=== PATIENT | male | born 1945 | race Caucasian/White ===

== ENCOUNTER 2018-10-22 07:43 | Observation (INO) ==
[2018-10-22 07:46] VITALS: BMI 27.9
[2018-10-22] MEDS ORDERED: CATAPRES TAB 0.2 MG PO ONE (08:03)
[2018-10-22] MEDS ORDERED: CATAPRES TAB 0.2 MG ONE (08:05)
[2018-10-22 08:15] LABS: BASOPHILS % (AUTO) 1.1 % (0.2-1.0); EOSINOPHILS # (AUTO) 0.2 x10^3/uL (0.0-0.2); EOSINOPHILS % (AUTO) 6.3 % (0.9-2.9); HEMATOCRIT 42.3 % (42.0-54.0); LYMPHOCYTES # (AUTO) 1.3 X10^3/uL (1.3-2.9); LYMPHOCYTES % (AUTO) 34.1 % (21.0-51.0); MEAN CORPUSCULAR HEMOGLOBIN 34.6 pg (27.0-34.0); MEAN CORPUSCULAR HGB CONC 35.4 g/dL (33.0-35.0); MEAN CORPUSCULAR VOLUME 97.5 fL (80.0-100.0); MEAN PLATELET VOLUME 6.5 fL (7.4-11.0); MONOCYTES # (AUTO) 0.5 x10^3/uL (0.3-0.8); MONOCYTES % (AUTO) 12.1 % (0.0-13.0); NEUTROPHILS # (AUTO) 1.8 x10^3/uL (2.2-4.8); NEUTROPHILS % (AUTO) 46.4 % (42.0-75.0); PLATELET COUNT 149 X10^3/uL (150.0-450.0); RED BLOOD COUNT 4.34 X10^6/uL (4.7-6.0); RED CELL DISTRIBUTION WIDTH 13.5 % (11.6-16.5); WHITE BLOOD COUNT 3.9 X10^3/uL (3.6-10.0)
--- NOTE | 2018-10-22 08:15 | DR.WEAKNES ---
HPI Time Seen Time Seen by Provider: 10/22/18 08:01 Primary Care Physician Primary Care Physician: KASSIE Complaints Chief Complaint Doctors Comments: Pt presented with right body weakness and numbness. Pt reports being well last night and today woke up around d6:30am with right sided numbness/tingling and DAVILA. He reports having right vision changes but denies any loss. He denies any CP, SOB, n/v. He has not has similar symptoms in the past. Denies any pain or difficulty walking and is not currently on any medications. His BP is elevated. Chief Complaint:: PT. STATES AT 0630, THE RIGHT SIDE OF HIS BODY FELT WEAK AND N UMB. HE ALSO STATES HE HAD BLURRED VISION TO THE RIGHT EYE. SYMPTOMS ARE THE SAME UPON ARRIVAL TO THE ER. DENIES PAIN. Reviewed Nurses Notes Reviewed: Yes Source History Provided: Patient and Family Member Mode of Arrival Mode of Arrival: Wheelchair Timing Onset of Chief Complaint: 10/22/18 Since onset, symptoms are:: Unchanged Symptom Onset: Unknown (wake up) Duration Duration: Since Onset Duration: Hours (2) Context Onset: Spontaneous Symptoms: Weakness and Numbness; denies Paralysis, Slurred Speech, Visual loss, Difficulty talking and Difficulty walking History of: None; denies CVA, Atrial Fibrillation, Head Trauma and Aspirin use Stroke Symptoms: Numbness of limbs (right); denies Ataxia, Weakness of limb, Slurring and Dizziness Location Weakness Location: Normal Associated Signs and Symptoms Associated Signs and Symptoms: denies Altered Mental Status, Neck Pain, Chest Pain, Nausea and Vomiting PMH PMH Past Medical History: No Past Surgical History: Yes Surgical History: Cholecystectomy Past Surgical History Comment: CATARACTS Family History History of Family Medical Conditions: No Social History Does patient currently use any type of tobacco product: No Have you used tobacco products in the last 12 months: No Type of Tobacco Use: None Does any household member use tobacco: No Alcohol Use: Occasionally Do you use any recreational Drugs:: No Lives With: Spouse Lives Where: Home infectious screening In the last 2 months have you had wt loss of >10#?: NO Have you had fever, night sweats or hemotysis?: No Have you traveled outside the country in the last 6 months?: No Isolation: Standard ROS Review of Systems Constitutional: negative Chills, Fever and Weakness Eyes: Blurred Vision; negative Eye Pain and Diplopia ENTM: negative Nose Congestion Respiratoy: negative Short of Breath Cardiovascular: negative Chest Pain and Palpitations Gastrointestinal/Abdominal: negative Abdominal Pain, Constipation, Nausea and Vomiting Genitourinary: negative Dysuria and Hematuria Neurological: Numbness and Paresthesia; negative Headache, Seizure, Weakness, Dizziness, Problems Walking and Speech Problem Musculoskeletal: negative Joint Pain and Muscle Pain Integumentary: negative Rash Endocrine: negative Unexplained Weight Gain, Unexplained Weight Loss and Decreased Appetite Psychiatric: negative Hallucinations All Other Systems: Reviewed and Negative PE Vital Signs Vitals: Temperature 98.2 F Pulse Rate [Apical] 61 Pulse Rate 62 Respiratory Rate 7 Blood Pressure [Left Arm] 167/90 Blood Pressure 167/90 O2 Sat by Pulse Oximetry 94 General Limitations: No Limitations Head Head Exam: Normal Inspection, Atraumatic and Normocephalic Eyes Eye exam: Normal Appearance, PERRL and EOMI; negative Scleral Icterus, Conjunctival Injection and Nystagmus Eyelids: Normal Inspection: Bilateral Pupils: Regular, Round: Bilateral ENT ENT Exam: Normal Exam, Normal Oropharynx, Normal External Ear Exam and Mucous Membranes Moist Mouth Exam: Normal Inspection Neck Neck Exam: Normal Inspection and Full ROM; negative Tenderness, Meningismus and Lymphadenopathy Respiratory Respiratory Exam: Normal Lung Sounds Bilat Respiratory Exam: Bilateral: Clear to Auscultation Cardiovascular Cardiovascular Exam: Regular Rate, Normal Rhythm and Normal Heart Sounds; negative Systolic Murmur Abdominal Exam Abdominal Exam: Normal Inspection, Normal Bowel Sounds and Soft; negative Distention, Tenderness and Guarding Extremities Extremities Exam: Normal Inspection, Full ROM and Normal Capillary Refill; negative Tenderness, Edema and Joint Swelling Back Back Exam: Normal Inspection and Full ROM; negative Tenderness, Paraspinal Tenderness and Vertebral Tenderness Neurologic Neurological Exam: Alert, Oriented X3, CN II-XII Intact, Normal Gait, Motor Sensory Deficit (right sensation decreased compared to left), Reflexes Normal and Other (visual acutity nml) Patient Oriented To: Person, Place and Time Speech: Fluid Speech Cranial Nerve Exam: EOM Function (II, III, IV, ): Normal, Facial Sensation (V): Normal, Facial Palsy (VII): Normal, Gag reflex (XI): Normal, Spinal Accessory Function (XI): Normal and Tongue Deviation: Normal Cerebellar Function: Finger to Nose: Normal and Heel to [place]: Normal Cerebellar Function: Normal Gait Motor Strength - LUE: 5/5 Motor Strength - RUE: 5/5 Motor Strength - LLE: 5/5 Motor Strength - RLE: 5/5 Upper Motor Neuron Exam: Babinski Sign: Normal Sensory Exam Lower Extremity: Light Touch: Right Abnormal Psychiatric Psychiatric Exam: Normal Affect and Normal Mood Skin Skin Exam: Warm, Dry, Intact and Normal Color; negative Rash MDM Differential Diagnosis Differential Diagnosis: CVA, Electrolyte Disorder and TIA Differential Diagnosis Comment: hyertensive emergency COURSE Reevaluation 1st: Improved (Right side numbness and tingling resolving, but still has DAVILA and BP >216/109 HR 65 will give labetalol 20mg. discussed results will pt.) 2nd: Improved (Pt BP down to 180/94. Still having Left sided DAVILA and neck pain. Pt with Full ROM of neck. no meningeal signs. D/w pt result and will admit for further evaluations.) Consultation Consultation Comments: 10:[address] Hand for admission will accept and see in the hospital. Advised to start on Lisinopril 10mg daily and order MRI/MRA. Education/Counseling Education/Counseling: Patient, Family, Education and Counseling Educated On: Treatment, Diagnosis and Prognosis ROR Labs Reviewed Laboratory Results Reviewed?: Yes Result Diagrams: 10/22/18 07:55 10/22/18 07:55 Laboratory: WBC 3.9 X10^3/uL (3.6-10.0) 10/22/18 07:55 RBC 4.34 X10^6/uL (4.7-6.0) L 10/22/18 07:55 Hgb 15.0 g/dL (13.5-18.0) 10/22/18 07:55 Hct 42.3 % (42.0-54.0) 10/22/18 07:55 MCV 97.5 fL (80.0-100.0) 10/22/18 07:55 MCH 34.6 pg (27.0-34.0) H 10/22/18 07:55 MCHC 35.4 g/dL (33.0-35.0) H 10/22/18 07:55 RDW 13.5 % (11.6-16.5) 10/22/18 07:55 Plt Count 149 X10^3/uL (150.0-450.0) L 10/22/18 07:55 MPV 6.5 fL (7.4-11.0) L 10/22/18 07:55 Neut % (Auto) 46.4 % (42.0-75.0) 10/22/18 07:55 Lymph % (Auto) 34.1 % (21.0-51.0) 10/22/18 07:55 [place] % (Auto) 12.1 % (0.0-13.0) 10/22/18 07:55 Eos % (Auto) 6.3 % (0.9-2.9) H 10/22/18 07:55 Baso % (Auto) 1.1 % (0.2-1.0) H 10/22/18 07:55 Neut # (Auto) 1.8 x10^3/uL (2.2-4.8) L 10/22/18 07:55 Lymph # (Auto) 1.3 X10^3/uL (1.3-2.9) 10/22/18 07:55 [place] # (Auto) 0.5 x10^3/uL (0.3-0.8) 10/22/18 07:55 Eos # (Auto) 0.2 x10^3/uL (0.0-0.2) 10/22/18 07:55 Baso # (Auto) 0.0 X10^3/uL (0.0-0.1) 10/22/18 07:55 Absolute Nucleated RBC 0.0 /100WBC 10/22/18 07:55 ESR 2 MM/HOUR (0-15) 10/22/18 07:55 PT 12.8 SECONDS (11.8-14.3) 10/22/18 07:55 INR Target Range - 10/22/18 07:55 INR 1.00 (0.8-1.3) 10/22/18 07:55 APTT 30.0 SECONDS (22.9-36.5) 10/22/18 07:55 PTT Comment - 10/22/18 07:55 Sodium 141 mmol/L (136-145) 10/22/18 07:55 Corrected Sodium 141 mmol/L (136-145) 10/22/18 07:55 Potassium 3.9 mmol/L (3.5-5.1) 10/22/18 07:55 Chloride 103 mmol/L (98-107) 10/22/18 07:55 Carbon Dioxide 28.8 mmol/L (21-32) 10/22/18 07:55 BUN 16 mg/dL (7-18) 10/22/18 07:55 Creatinine 1.12 mg/dL (0.70-1.30) 10/22/18 07:55 Est GFR (MDRD) Af Amer > 60 (>60) 10/22/18 07:55 Est GFR (MDRD) Non-Af > 60 (>60) 10/22/18 07:55 Glucose 114 mg/dL (65-99) H 10/22/18 07:55 Calcium 8.8 mg/dL (8.5-10.1) 10/22/18 07:55 Corrected Calcium TNP 10/22/18 07:55 Total Bilirubin 0.60 mg/dL (0.2-1.0) 10/22/18 07:55 AST 18 Units/L (15-37) 10/22/18 07:55 ALT 19 Units/L (12-78) 10/22/18 07:55 Alkaline Phosphatase 56 Units/L (46-116) 10/22/18 07:55 Creatine Kinase 114 Units/L (39-308) 10/22/18 07:55 CK-MB (CK-2) 2.1 ng/mL (0-4.0) 10/22/18 07:55 CK/CKMB % Calc 1.8 % (<4) 10/22/18 07:55 Troponin I < 0.02 ng/mL (0-1.5) 10/22/18 07:55 Total Protein 7.7 g/dL (6.4-8.2) 10/22/18 07:55 Albumin 4.2 g/dL (3.4-5.0) 10/22/18 07:55 Globulin 3.5 g/dL (2.5-4.5) 10/22/18 07:55 Albumin/Globulin Ratio 1.2 Ratio (1.1-2.1) 10/22/18 07:55 Triglycerides 109 mg/dL (0-150) 10/22/18 07:55 Cholesterol 203 mg/dL (0-200) H 10/22/18 07:55 LDL Cholesterol, Calc 119 mg/dL (0-100) H 10/22/18 07:55 HDL Cholesterol 62 mg/dL (40-60) H 10/22/18 07:55 Cholesterol/HDL Ratio 3.3 (0.0-5.0) 10/22/18 07:55 Other Results Comments: PLT 149 Trop neg. Cr 1.12, ESR 2 CT head: negative XRAY XRAY Interpreted by: Radiologist XRAY Findings: CXR chronic interstitial lung changes EKG Rate: 65 [place]: Normal Rhythm: NSR Block: None ST: Normal Opioid Opioid Risk Tool Age (Donis box if 16-45): No History of Preadolescent Sexual Abuse: No Total: 0 Total Score Risk Category: Low Risk Copyright: Norman LIRA predicting aberrant behaviors Diagnosis Discharge Problem: Hypertensive emergency, TIA (transient ischemic attack), Thrombocytopenia Instructions Forms: Excuse From Work
[2018-10-22 08:26] LABS: BLOOD UREA NITROGEN 16 mg/dL (7-18); CALCIUM 8.8 mg/dL (8.5-10.1); CARBON DIOXIDE 28.8 mmol/L (21-32); CHLORIDE 103 mmol/L (98-107); COR NA(FOR HYPERGLY) 141 mmol/L (136-145); CREATININE 1.12 mg/dL (0.70-1.30); SODIUM 141 mmol/L (136-145); TROPONIN I < 0.02 ng/mL (0-1.5); eGFR NON BLACK RACES > 60 (>60)
[2018-10-22 08:30] LABS: ALANINE AMINOTRANSFERASE 19 Units/L (12-78); ALBUMIN 4.2 g/dL (3.4-5.0); ALKALINE PHOSPHATASE 56 Units/L (46-116); ASPARTATE AMINO TRANSFERASE 18 Units/L (15-37); CHOL/HDL RATIO 3.3 (0.0-5.0); CHOLESTEROL 203 mg/dL (0-200); CKMB % 1.8 % (<4); CREATINE KINASE 114 Units/L (39-308); CREATINE KINASE MB 2.1 ng/mL (0-4.0); HDL CHOLESTEROL 62 mg/dL (40-60); TOTAL PROTEIN 7.7 g/dL (6.4-8.2); TRIGLYCERIDES 109 mg/dL (0-150)
--- NOTE | 2018-10-22 08:35 | CT ---
HISTORY: Right-sided weakness Study: CT head without contrast Comparison: None Technique: Axial noncontrast images with coronal and sagittal reformats. Dose reduction procedures were used with mA/kv adjusted for body size. Findings: The ventricles are normal in size shape and position. There are no areas of abnormal attenuation to suggest recent or remote CVA, hemorrhage, mass lesion, or extra-axial fluid collection. The visualized sinuses are clear. The calvarium is intact. If acute CVA is a strong clinical consideration MRI with diffusion imaging is recommended for further evaluation. IMPRESSION: No significant intracranial abnormality identified Reported By:
[2018-10-22] MEDS ORDERED: NORMODYNE INJ 20 MG VIAL IVP ONE (08:43)
[2018-10-22] MEDS ORDERED: NORMODYNE INJ 100 MG VIAL ONE (08:45)
--- NOTE | 2018-10-22 09:15 | RAD ---
History: Right sided weakness and hypertension Study: Portable AP chest Comparison: None Findings: There are increased diffuse interstitial lung markings. The heart size is mildly enlarged. The aorta is mildly tortuous. There are moderate osteophytes about the AC joints. There is no focal lung consolidation or atelectasis or effusion. Impression: Interstitial lung disease, mild, likely chronic in a patient of this age. No definite acute cardiopulmonary disease Reported By:
[2018-10-22] MEDS ORDERED: LABETALOL HCL IVP PRN (11:03)
--- NOTE | 2018-10-22 12:38 | MRI ---
HISTORY: Headache, vision changes, hypertension Study: MRI of the head Comparison: CT of the brain performed earlier today also on October 22, 2018 Technique: Images were obtained from the skull base to near the vertex without infusion of IV contrast. Findings: Images demonstrate tortuosity of the basilar and vertebral arteries. The left vertebral artery is dominant. The posterior cerebral and middle cerebral arteries are grossly unremarkable. There is tortuosity of the anterior cerebral arteries which are otherwise grossly unremarkable in appearance as well. IMPRESSION: No gross abnormalities are appreciated. Reported By:
--- NOTE | 2018-10-22 13:01 | VAS ---
History: TIA Study: Carotid duplex ultrasound Comparison: None Findings: Images show irregular flat calcified plaque formation in the right carotid bulb. There is a small calcified plaque at the left carotid bulb origin. There is antegrade flow in the vertebral arteries, left dominant Peak systolic velocity in the right internal carotid artery is 62.9 centimeters/second and in the right common carotid artery is 55.2 for ratio of 1.1. Peak systolic velocity in the left internal carotid artery is 69.1 centimeters/second and in the distal left common carotid artery is 85.4 for a ratio of 0.81. Impression: 1. Calcified plaques in the carotid bulbs, more extensive on the right with plaque irregularity on the right. However, no evidence for stenosis. Reported By:
[2018-10-22] MEDS ORDERED: ULTRAM PO PRN (18:12)
[2018-10-22] MEDS ORDERED: TYLENOL 325 MG TAB PO ONE (18:29)
[2018-10-22] MEDS: TYLENOL 325 MG TAB PO PRN (18:33)
[2018-10-23] MEDS: TYLENOL 325 MG TAB PO PRN (04:30)
[2018-10-23 05:45] LABS: BASOPHILS % (AUTO) 0.3 % (0.2-1.0); EOSINOPHILS # (AUTO) 0.3 x10^3/uL (0.0-0.2); EOSINOPHILS % (AUTO) 4.4 % (0.9-2.9); HEMATOCRIT 39.4 % (42.0-54.0); HEMOGLOBIN 13.7 g/dL (13.5-18.0); LYMPHOCYTES # (AUTO) 1.6 X10^3/uL (1.3-2.9); LYMPHOCYTES % (AUTO) 28.4 % (21.0-51.0); MEAN CORPUSCULAR HEMOGLOBIN 34.5 pg (27.0-34.0); MEAN CORPUSCULAR HGB CONC 34.8 g/dL (33.0-35.0); MEAN CORPUSCULAR VOLUME 98.9 fL (80.0-100.0); MEAN PLATELET VOLUME 7.1 fL (7.4-11.0); MONOCYTES # (AUTO) 0.5 x10^3/uL (0.3-0.8); MONOCYTES % (AUTO) 9.4 % (0.0-13.0); NEUTROPHILS # (AUTO) 3.3 x10^3/uL (2.2-4.8); NEUTROPHILS % (AUTO) 57.5 % (42.0-75.0); PLATELET COUNT 132 X10^3/uL (150.0-450.0); RED BLOOD COUNT 3.98 X10^6/uL (4.7-6.0); RED CELL DISTRIBUTION WIDTH 13.4 % (11.6-16.5); WHITE BLOOD COUNT 5.8 X10^3/uL (3.6-10.0)
[2018-10-23 06:05] LABS: ALANINE AMINOTRANSFERASE 18 Units/L (12-78); ALBUMIN 3.7 g/dL (3.4-5.0); ALKALINE PHOSPHATASE 46 Units/L (46-116); ASPARTATE AMINO TRANSFERASE 17 Units/L (15-37); BLOOD UREA NITROGEN 17 mg/dL (7-18); CALCIUM 8.5 mg/dL (8.5-10.1); CHLORIDE 104 mmol/L (98-107); CREATININE 1.01 mg/dL (0.70-1.30); SODIUM 141 mmol/L (136-145); TOTAL PROTEIN 7.1 g/dL (6.4-8.2); eGFR NON BLACK RACES > 60 (>60)
[2018-10-23] MEDS ORDERED: ZESTRIL TAB 10 MG PO SCH (09:00)
[2018-10-23] MEDS ORDERED: LIPITOR TAB 20 MG PO SCH (09:00)
[2018-10-23] MEDS ORDERED: ASPIRIN EC 81 MG PO SCH (09:00)
[2018-10-23] MEDS ORDERED: PHARMACY CONSULT - DOSE _____ XX SCH (09:00)
[2018-10-23 10:39] LABS: CKMB % 1.5 % (<4); CREATINE KINASE 86 Units/L (39-308); CREATINE KINASE MB 1.3 ng/mL (0-4.0); TROPONIN I < 0.02 ng/mL (0-1.5)
[2018-10-23 12:32] VITALS: BP 140/80
== END 2018-10-23 14:30 | disposition home or self-care (01) ==
LOC: ER 07:43 → MED/SURG 07:43
PROVIDERS: ADMIT Internal Medicine; ATTEND Internal Medicine
DX: G45.9 Transient cerebral ischemic attack, unspecified; R20.0 Anesthesia of skin; R51 Headache; D69.6 Thrombocytopenia, unspecified; I16.0 Hypertensive urgency
CPT/HCPCS: 36415; 70450; 70544; 71010; 71045; 80053; 80061; 82550; 82553; 84484; 85025; 85610; 85652; 85730; 93005; 93306; 93880; 96365; 96374; 99284; A4222; G0378; J3490